=== PATIENT | male | born 1950 | race Caucasian/White ===

== ENCOUNTER 2016-11-19 07:53 | Observation (INO) ==
[2016-11-19] MEDS ORDERED: NITROGLYCERIN ONE (08:19)
[2016-11-19] MEDS ORDERED: ASPIRIN PO STA (08:20)
[2016-11-19] MEDS ORDERED: NITROGLYCERIN SL PRN (08:20)
[2016-11-19 08:37] LABS: MANUAL DIFF NEEDED? NO
--- NOTE | 2016-11-19 08:44 | Diag Imaging Result Doc PS360 ---
CHEST-PORTABLE - 11/19/2016 INDICATION: sob/cp TECHNIQUE: COMPARISON: None FINDINGS: There are sternotomy wires. The lungs are normally expanded and clear. Heart size and mediastinal contours are normal. No pneumothorax or pleural effusion. IMPRESSION: Negative exam. Electronically signed by Joe Buckner 11/19/2016 8:42 AM
[2016-11-19 08:45] LABS: BASO% 0.9 % (0.0-0.8); EOS# 0.38 X1000 (0.0-0.7); HEMATOCRIT 45.9 % (42.0-52.0); HEMOGLOBIN 15.2 g/dL (14.0-18.0); LYMPH# 1.56 X1000 (1.2-3.4); LYMPH% 24.6 % (20.5-51.1); MCH 29.8 PG (27-31); MCHC 33.1 g/dL (33-37); MPV 10.7 FL (7.4-10.4); NEUT% 57.5 % (42.2-75.2); PLT 139 X1000 (130-400)
[2016-11-19 08:56] LABS: INR 1.01; PROTIME 10.6 Seconds (9.2-11.7); PTT 23.9 Seconds (22.0-36.0)
[2016-11-19 09:10] LABS: AGAP 15; ALBUMIN 4.5 g/dL (3.5-5.0); ALKALINE PHOSPHATASE 87 U/L (32-122); BUN 17 mg/dL (8-22); CALCIUM 9.1 mg/dL (8.8-10.2); CHLORIDE 99 mmol/L (98-107); CK PROFILE 113 U/L (24-204); COSMO 288; GOT 18 U/L (10-34); GPT 24 U/L (10-44); MAGNESIUM 1.6 mg/dL (1.5-2.7); POTASSIUM 4.1 mmol/L (3.5-5.1); SODIUM 139 mmol/L (136-145); TCO2 25 mmol/L (25-35); TOTAL BILIRUBIN 0.45 mg/dL (0.20-1.00); TOTAL PROTEIN 6.4 g/dL (6.3-8.3)
--- NOTE | 2016-11-19 10:49 | EKG Report ---
Test Performed on : 11/19/2016 07:55:24 AM Test Reason : Chest Pain Blood Pressure : / mmHG Vent. Rate : 078 BPM Atrial Rate : 078 BPM P-R Int : 136 ms QRS Dur : 154 ms QT Int : 430 ms P-R-T Axes : 044 -52 -11 degrees QTc Int : 490 ms Normal sinus rhythm. Left axis deviation Right bundle branch block Inferior infarct (cited on or before 15-OCT-2014) Abnormal ECG When compared with ECG of 15-OCT-2014 12:28, T wave inversion no longer evident in Anterolateral leads Unconfirmed Result
[2016-11-19] MEDS ORDERED: ZOFRAN IV PRN (14:36)
[2016-11-19] MEDS ORDERED: PERCOCET-5 PO PRN (14:36)
[2016-11-19] MEDS ORDERED: METHOCARBAMOL 750 MG PO PRN (14:36)
[2016-11-19] MEDS ORDERED: TYLENOL PO PRN (14:36)
[2016-11-19] MEDS: HUMALOG SUBQ SCH ×2 (16:54→21:00)
--- NOTE | 2016-11-19 17:13 | HISTORY AND PHYSICAL ---
PCP: Dr. Hernandez. SOLAR POWER INSTALLER: Dr. Sawyer Rojas. CHIEF COMPLAINT: Chest pain. HISTORY OF PRESENT ILLNESS: Mr. Eaton is a 65-year-old male with a history of known coronary disease status post MT and stenting and CABG who presents to our ER with chest pain that began this morning at rest. He described midsternal heaviness radiating to the left arm lasting several hours until he came to the ER for evaluation at which time he got nitroglycerin which did relieve the pain. He denies any shortness of breath, nausea or vomiting. He does report some mild diaphoresis. He denies any syncope, palpitations, fever, chills or cough. He does report chronic lower extremity edema but no PND or orthopnea. When he got to the ER labs and diagnostics were done, he had an EKG done which showed sinus rhythm with a right bundle branch block and nonspecific ST changes. Lab data is unremarkable except for some mild hyperglycemia. Cardiology is already been consulted. He is going to be admitted for observation status for chest pain. PAST MEDICAL HISTORY: 1. CAD status post MT and stenting. 2. Hypertension. 3. Hyperlipidemia. 4. Type 2 diabetes. 5. PVD. 6. AAA. 7. Kidney stones. SURGICAL HISTORY: He has had CABG, left heart catheterization and lithotripsy. SOCIAL HISTORY: He is . He denies tobacco, alcohol or drug use. FAMILY HISTORY: Noncontributory. REVIEW OF SYSTEMS: Fourteen-point review of systems obtained found to be negative with the exception of the HPI. ALLERGIES: No known drug allergies. HOME MEDICATIONS: Aspirin 81 mg daily, Zetia 10 mg daily, glimepiride 4 mg daily, hydrochlorothiazide 25 mg daily, Lantus and Humalog as directed, irbesartan 150 mg daily, metformin 1000 mg p.o. b.i.d., methocarbamol 750 mg p.o. as needed, methyldopa 500 mg daily, metoprolol tartrate 100 mg daily, Percocet 5 as needed, Protonix 40 mg daily, Zantac 10 mg daily, Viagra 100 mg as needed, Januvia 100 mg daily, Flomax 0.4 mg daily. PHYSICAL EXAMINATION: VITAL SIGNS: Blood pressure 142/72, heart rate 68, respiratory rate is 18, O2 saturation 96% on room air. GENERAL: This is an obese male lying in hospital bed, no acute distress. NEUROLOGIC: He is awake, alert, oriented. He follows commands without focal deficits. HEENT: Head is atraumatic, normocephalic. His pupils are equal, round, reactive to light. Oral mucosa is moist. Trachea is midline. There is no JVD. CHEST: Clear to auscultation bilaterally. CV: Regular rate and rhythm. S1-S2 is noted. No murmurs. GI: Soft, nondistended, nontender. Bowel sounds positive. EXTREMITIES: Trace edema bilaterally, pulses 1, no clubbing or cyanosis. DIAGNOSTIC DATA: EKG sinus rhythm, right bundle branch block. Chest x-ray negative. WBC 6.35, hemoglobin 15.2, hematocrit 45.9, platelet count 139,000, INR 1.01, sodium 139, potassium 4.1, chloride 99, CO2 25, anion gap 15, BUN 17, creatinine 1, glucose 258, magnesium 1.6. LFTs within normal limits. Troponin negative. ProBNP 221, albumin 4.5. ASSESSMENT/PLAN: 1. Chest pain: Does have some typical features. He is going to have a stress test today, will continue his aspirin, beta lc, nitrates. Will trend his enzymes and keep him on telemetry. 2. Type 2 diabetes: Hold his oral antidiabetics and add pattern sugars sliding scale insulin, check hemoglobin A1c in the morning. 3. Hypertension: Chronic and stable, continue home medications. 4. Hyperlipidemia: We will check a lipid panel in the morning, continue his home medications. 5. Deep vein thrombosis prophylaxis will be provided with Lovenox. Further recommendations to follow. Dictated by ELIZABETH Dior for Mauri Orozco MD Addendum: Patient seen and examined by myself. Agree with ELIZABETH note. It reflects my assessment and plan. Patient with known history of cardiac disease presented to ER complaining of chest pain in substernal area, with some diaphoresis and nausea. Will be admitted to hospital. Cardiac enzymes will be trended, an echo is already ordered and cardiology will be consulted as well. Will follow their recommendations. cc: ELIZABETH Dior MD [facility]
--- NOTE | 2016-11-19 17:53 | CONSULTATION ---
DATE OF CONSULTATION: 11/19/2016 IMPRESSION: 1. Left arm discomfort and atypical chest discomfort. 2. Atherosclerotic coronary disease with chronically occluded mid right coronary artery and severe left circumflex stenosis treated with angioplasty/stenting and later coronary bypass grafting to obtuse marginal for severe stenosis just proximal to the stent. Left ventricular ejection fraction has been around 45% with mild inferior/inferolateral hypokinesis. Coronary bypass performed 2012. 3. Hypertension. 4. Hyperlipidemia. 5. Type 2 diabetes mellitus. 6. Previous cigarette use, discontinued 2009. RECOMMENDATIONS: 1. Follow up serial cardiac enzymes. 2. Pursue stress myocardial perfusion imaging if cardiac enzymes negative. HISTORY: This 65-year-old, white male with past history of atherosclerotic coronary disease as outlined above presented to the emergency room this morning with left arm discomfort and some chest discomfort. He was admitted for further evaluation. Cardiology consultation requested. He relates that he awoke this morning with a dull discomfort in his left arm. He also describes some fleeting episodes of sharp left anterior chest discomfort. He has had atypical chest symptoms along the course of his coronary disease and is not clear what his angina symptoms have been. Symptoms have improved after treatment in the emergency room. He is generally fairly active and denies any exertional chest discomfort or dyspnea. PAST MEDICAL HISTORY: 1. Atherosclerotic coronary disease as outlined above. 2. Hypertension. 3. Hyperlipidemia. 4. Type 2 diabetes mellitus. 5. Peripheral vascular disease. 6. Nephrolithiasis. 7. Mild abdominal aortic aneurysm. ALLERGIES: He is allergic or intolerant of statins. MEDICATIONS: Prior to admission as listed. SOCIAL HISTORY: He quit smoking in 2009. 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 FAMILY HISTORY: Positive for coronary disease. REVIEW OF SYSTEMS: Pulmonary: Negative. Gastrointestinal: Negative. Constitutional: Negative. Remainder of review of systems negative/noncontributory, 14 total systems reviewed. PHYSICAL EXAMINATION: General: This is a pleasant overweight middle-aged male in no distress. Vital Signs: As recorded include a blood pressure 151/79, heart rate 65 and regular, weight 255 pounds. HEENT: Extraocular movements intact. Mucous membranes moist. Neck: Supple without jugular venous distention. There are no carotid bruits. Chest: Clear to auscultation. Cardiac Exam: Reveals a regular rate and rhythm without appreciable murmur or gallop. Abdomen: Soft, nontender. Bowel sounds are normal. Extremities: Without edema. Neurologic Exam: Reveals him to be alert and fluent. Speech is fluent. Moves all 4 extremities equally well. Skin: Warm and dry. Psychiatric: Exam reveals mood to be appropriate. DIAGNOSTIC DATA: ECG demonstrates sinus rhythm, left anterior fascicular block, right bundle branch block and cannot rule out inferior infarct of undetermined age. cc: Tevin Schwartz MD
[2016-11-20] MEDS: HUMALOG SUBQ SCH ×2 (06:07→11:59)
[2016-11-20 06:28] LABS: HEMOGLOBIN 14.9 g/dL (14.0-18.0); MCH 30.5 PG (27-31); MCHC 33.1 g/dL (33-37); MPV 10.6 FL (7.4-10.4); RBC 4.89 XMIL (4.7-6.1)
[2016-11-20 06:36] LABS: HEMOGLOBIN A1C 7.2 % (4.8-6.0)
--- NOTE | 2016-11-20 06:37 | EKG Report ---
Test Performed on : 11/20/2016 05:54:54 AM Test Reason : chest pain Blood Pressure : / mmHG Vent. Rate : 071 BPM Atrial Rate : 071 BPM P-R Int : 134 ms QRS Dur : 148 ms QT Int : 466 ms P-R-T Axes : 028 -42 -29 degrees QTc Int : 506 ms Sinus rhythm. with premature supraventricular complexes. and with occasional premature ventricular c omplexes. Left axis deviation Right bundle branch block Inferior infarct (cited on or before 15-OCT-2014) Abnormal ECG When compared with ECG of 19-NOV-2016 07:55, (Unconfirmed) premature ventricular complexes. are now present premature supraventricular complexes. are now present Questionable change in initial forces of Inferior leads Nonspecific T wave abnormality now evident in Anterolateral leads Confirmed by Kourtney MARTINEZ, Zhang Lock ([id number]) on 11/21/2016 9:58:05 AM
[2016-11-20 06:39] LABS: AGAP 12; BUN 17 mg/dL (8-22); CALCIUM 9.1 mg/dL (8.8-10.2); CHLORIDE 100 mmol/L (98-107); COSMO 290; HDL 27 mg/dL (35-55); LDL 58 mg/dL; POTASSIUM 3.9 mmol/L (3.5-5.1); SODIUM 143 mmol/L (136-145); TCO2 31 mmol/L (25-35); TRIGLYCERIDES 400 mg/dL (39-160); VLDL 80 mg/dL
[2016-11-20] MEDS ORDERED: PROTONIX PO SCH (07:00)
[2016-11-20] MEDS ORDERED: LEXISCAN ONE (08:07)
[2016-11-20] MEDS ORDERED: ALDOMET PO SCH (09:00)
[2016-11-20] MEDS ORDERED: LOPRESSOR PO SCH (09:00)
[2016-11-20] MEDS ORDERED: AVAPRO PO SCH (09:00)
[2016-11-20] MEDS ORDERED: INSULIN LISPRO 100 UNIT SQ SCH (09:00)
[2016-11-20] MEDS ORDERED: PEPCID PO SCH (09:00)
[2016-11-20] MEDS ORDERED: HYDROCHLOROTHIAZIDE PO SCH (09:00)
[2016-11-20] MEDS ORDERED: ZETIA PO SCH (09:00)
[2016-11-20] MEDS ORDERED: ASPIRIN PO SCH (09:00)
[2016-11-20] MEDS ORDERED: APRESOLINE IV PRN (09:48)
--- NOTE | 2016-11-20 11:09 | PROGRESS NOTE ---
DATE: 11/20/2016 SUBJECTIVE: This patient states that he is feeling better. He has no complaint of chest pain today. He is tolerating p.o. He just had a stress test done, pending results. OBJECTIVE: Vital Signs: Temperature 98.3 degrees, pulse 71, respiratory rate 17, blood pressure 187/98, oxygen saturation 97% on room air. HEENT: Head normocephalic. No trauma. PERRLA. Neck: Supple. No JVD. No masses. Central trachea. Chest: Clear to auscultation. No wheezing. No rales. Abdomen: Soft, protuberant, nontender, and nondistended. No hepatosplenomegaly. Extremities: There is 1+ lower extremity edema. No clubbing. No cyanosis. Neurological Examination: The patient is alert and oriented x3. No focal neurological deficits. Laboratory: WBC 5.3, hemoglobin 14.9, hematocrit 45, platelets 127,000. Sodium 143, potassium 3.9, chloride 100, bicarbonate 31, BUN 17, creatinine 0.9, glucose 160, hemoglobin A1c 7.2, calcium 9.1. ASSESSMENT AND PLAN: 1. Chest pain. This patient recently had a stress test done. He is not feeling any kind of chest pain today and apparently no acute events overnight. Pending results. Cardiology department already on board. Continue with the same management. 2. Type 2 diabetes. Hemoglobin A1c is 7.2 so apparently this patient has been taking care of his blood sugar at home. For now, we will continue with the sliding scale insulin and pattern of blood sugar. 3. Hypertension. The blood pressure has been elevated and I do believe it is because he has not been taking his medications today. He was nothing per oral for the procedure. We will restart his medications. We will monitor the blood pressure during the day. 4. Hyperlipidemia. His triglycerides are elevated and he knows about this. Apparently, he used to be on different types of statins but they were stopped because of hepatotoxicity and myotoxicity. 5. Deep vein thrombosis prophylaxis. Continue with Lovenox. cc: Jesse Walden MD
[2016-11-20 11:23] VITALS: BP 167/90
--- NOTE | 2016-11-20 13:35 | Diag Imaging Result Document ---
PROCEDURE NAME: MYOCARDIAL PERF SCAN, STR/REST - 11/19/2016 INDICATION: Chest pain. PROCEDURES PERFORMED: 1. Lexiscan stress. 2. Two-day stress rest myocardial perfusion imaging. PROCEDURE IN DETAIL: Mr. Eaton was brought to the [facility] and had a resting study on 11/19/2016 with injection of 40.9 mCi of technetium-99m sestamibi with usual imaging protocol utilized. Subsequently, he was brought back on 11/20/2016 and had a Lexiscan stress. At peak stress, he was injected with 40.6 mCi of technetium-99m sestamibi with the usual imaging protocol utilized. FINDINGS: LEXISCAN STRESS RESULTS. 1. Baseline EKG shows sinus rhythm with a right bundle branch block. 2. Lexiscan stress did not demonstrate any clear evidence of ischemic-related EKG changes or significant arrhythmias. Occasional scattered PVCs were noted throughout the study. PERFUSION IMAGING RESULTS 1. No evidence of abnormal extracardiac uptake. 2. T.i.d. ratio 0.86. 3. Perfusion imaging demonstrates a moderate size, [id number] intensity fixed defect located in the inferior mid and inferior basilar segments predominantly. There is some very minimal extension into the inferior apical. This defect is fixed suggestive of infarct. There is no appreciable amount of ischemia identified on this study. 4. There is a preserved ejection fraction at stress of 58% with an end-diastolic volume of 165 and end systolic volume of 69. There does appear to be akinesis of the inferior basilar portions. cc: MD Tania Bender PA
--- NOTE | 2016-11-20 14:05 | PROGRESS NOTE ---
DATE: 11/20/2016 CARDIOLOGY FOLLOWUP NOTE: SUBJECTIVE: Patient continues without further chest discomfort or arm discomfort. OBJECTIVE: Vital Signs: Blood pressure 167/90 heart rate, 71 and regular. Chest: Clear to auscultation. Cardiac Exam: Reveals a regular rate and rhythm without appreciable murmur or gallop. There is no evidence of peripheral edema. LABORATORY DATA: Includes: Initial troponin less than 0.01. Followup troponin less than 0.01. Lexiscan sestamibi study demonstrates fixed defect in the basal inferolateral region left ventricle with associated mild hypokinesis suggesting prior infarct in this territory. There is no significant reversibility and no scintigraphic evidence of inducible myocardial ischemia. IMPRESSION: 1. Recent left arm discomfort and atypical chest discomfort. No evidence of myocardial infarction. 2. Atherosclerotic coronary disease with a chronically occluded mid right coronary artery and severe left circumflex coronary stenosis treated with angioplasty/stenting and later coronary bypass grafting to obtuse marginal for severe stenosis just proximal to the stent. Stress myocardial perfusion study this admission demonstrates fixed defect in the basal to mid inferolateral region suggesting prior infarct but no evidence of inducible myocardial ischemia. 3. Hypertension. 4. Hyperlipidemia. 5. Type 2 diabetes mellitus. RECOMMENDATIONS: 1. Continue medical management of patient's coronary atherosclerosis. 2. Reasonable for patient to be discharged home at this point as he appears clinically stable from a standpoint of his coronary disease. cc: Tevin Schwartz MD
[2016-11-20] MEDS ORDERED: LIPITOR PO SCH (21:00)
--- NOTE | 2016-11-21 05:50 | DISCHARGE SUMMARY ---
ADMISSION DATE: 11/19/2016 DISCHARGE DATE: 11/20/2016 CONSULTATIONS: Dr. Tevin Schwartz with Cardiology. PERTINENT PROCEDURES: 1. Chest x-ray with negative exam. 2. Myocardial perfusion scan demonstrated a fixed defect in the basal to mid inferior lateral region suggesting prior infarct but no evidence of inducible myocardial ischemia. DISCHARGE DIAGNOSES: 1. Chest pain with atypical features and left arm discomfort. The patient underwent a myocardial perfusion scan that showed no evidence of inducible myocardial infarction. Troponin's have all been negative. He has been chest pain and arm pain free since admission. 2. Atherosclerotic coronary artery disease with chronically occluded mid right coronary artery and severe left circ coronary stenosis treated with angioplasty stenting and later CABG to obtuse marginal for severe stenosis just proximal to the stent. We will continue with medical management. 3. Type 2 diabetes uncontrolled. Hemoglobin A1c of 7.2. Continue home regimen and diabetic diet. 4. Hypertension, uncontrolled. The patient has been educated on medical compliance. 5. Hyperlipidemia. His triglycerides are elevated. Patient is aware. Patient used to be on different types of statins, but they were stopped due to hepatotoxicity and mild toxicity. HOSPITAL COURSE: Mr. Eaton is a 65-year-old, male with a known history of coronary artery disease status post AL with stenting and CABG, who presented to the ED with chest pain that began on the morning of his admission at rest. He described it as mid sternal heaviness radiating to the left arm lasting several hours until he came to the ED for evaluation at which time he got nitroglycerin which did relieve his pain. He denies any shortness of breath. No nausea or vomiting. He did report some mild diaphoresis. He does report chronic lower extremity edema. No PND or orthopnea. When he got to the ER, his labs and diagnostics were done. An EKG showed sinus rhythm with a right bundle branch block with nonspecific ST changes. Lab data was unremarkable except for mild hyperglycemia. Cardiology was consulted. He was admitted and underwent a stress test that did not show any evidence of inducible myocardial ischemia. All troponin's have been negative. He has continued to be chest and arm discomfort free since admission. Cardiology's recommendations were to continue his current medical regimen for his coronary arthrosclerosis. It is reasonable for him to be discharged home since he is clinically stable and pain free. VITAL SIGNS AT TIME OF DISCHARGE: Temperature is 98.3 degrees, heart rate 71, respirations 17, blood pressure 167/90 and O2 is 97% on room air. DISCHARGE DIET: Healthy heart. DISCHARGE MEDICATIONS: 1. Aspirin 81 mg p.o. daily. 2. Zetia 10 mg p.o. daily. 3. Glimepiride 4 mg p.o. daily. 4. Hydrochlorothiazide 25 mg p.o. daily. 5. Lantus as directed. 6. Humalog 100 units mL cartridge, sliding scale as directed. 7. Irbesartan 150 mg p.o. daily. 8. Metformin ER 1000 mg p.o. b.i.d. 9. Methocarbamol 750 mg p.o. p.r.n. 10. Methyldopa 500 mg p.o. daily. 11. Metoprolol tartrate 100 mg p.o. daily. 12. Percocet 5 1 each p.o. q.4 hours p.r.n. 13. Protonix 40 mg p.o. daily. 14. Zantac 25 10 mg p.o. daily. 15. Viagra 100 mg p.o. p.r.n. 16. Januvia 100 mg p.o. daily. 17. Flomax 0.4 mg p.o. daily. FOLLOWUP: Mr. Eaton is being discharged home. He will follow up with Dr. Schwartz in the office within a month as well as his primary care physician Dr. Dolores Hernandez in 1 week. He can return to the ED for any worsening of symptoms. Time discharging this patient 40 minutes Dictated by ELIZABETH Aparicio for Jesse Walden MD cc: MD Dr. Dolores Gabriel [facility]
--- NOTE | 2016-11-21 06:10 | DISCHARGE SUMMARY ---
ADMISSION DATE: 11/19/2016 DISCHARGE DATE: 11/20/2016 ADDENDUM: Patient seen and examined by me [id number], this patient was admitted primarily because of chest pain and given his past medical history of coronary artery disease, hypertension, dyslipidemia and diabetes, we decided to keep this patient and consult Cardiology. We did a stress test that did not show any acute abnormality. Today, my physical exam was completely benign. He was not complaining of any chest pain, shortness of breath or any issue. His blood pressure was elevated because he was not taking any medication today. He was NPO for the procedure. Cardiology Department evaluated this patient and they felt this patient can be discharged home because he was clinically stable and not having any acute coronary syndrome. He will continue with the same management that he was at home, no changes. I was about to add the statin but apparently this patient had a history of hepatotoxicity and mild toxicity secondary to these medications. He will follow with the primary care doctor in 1 week and his aids social worker as scheduled. cc: Jesse Walden MD
--- NOTE | 2016-11-26 13:34 | PROVIDER DOCUMENTATION ---
This chart was entered by Dennise Delarosa Scribe, acting as scribe for Marsha Wen MD. HPI-Chest Pain - General Chief Complaint: Chest Pain Stated Complaint: cp/lft arm pain Time Seen by Provider: 11/19/16 08:13 Source: patient Allergies/Adverse Reactions: Patient Allergies Allergy/AdvReac Type Severity Reaction Status Date / Time No Known Allergies Allergy Verified 11/26/11 10:15 Home Medications: Home Medication List Medication Instructions Recorded Confirmed Last Taken Type Glimepiride 4 mg PO DAILY 11/27/11 11/19/16 10/17/14 08:00 History Metformin HCl [Metformin HCl ER] 1,000 mg PO BID 11/27/11 11/19/16 10/17/14 21: 30 History Sitagliptin [Januvia] 100 mg PO DAILY 11/27/11 11/19/16 10/17/14 08:00 History Aspirin 81 mg PO DAILY 10/15/14 11/19/16 10/15/14 05:30 History Ezetimibe [Zetia] 10 mg PO DAILY 10/15/14 11/19/16 10/14/14 06:30 History Hydrochlorothiazide 25 mg PO DAILY 10/15/14 11/19/16 10/11/14 08:00 History Insulin Glargine [Lantus] 0 unit SUBQ DIRECTED 10/15/14 11/19/16 10/17/14 08: 00 History Irbesartan 150 mg PO DAILY 10/15/14 11/19/16 10/18/14 07:30 History Methocarbamol 750 mg PO PRN PRN 10/15/14 11/19/16 07/16/14 21:00 History Methyldopa 500 mg PO DAILY 10/15/14 11/19/16 10/18/14 07:00 History Metoprolol Tartrate 100 mg PO DAILY 10/15/14 11/19/16 10/18/14 07:00 History Pantoprazole [Protonix] 40 mg PO DAILY@0700 10/15/14 11/19/16 10/17/14 08:00 History Sildenafil Citrate [Viagra] 100 mg PO PRN PRN 10/15/14 11/19/16 Unknown History Oxycodone/APAP 5 mg/325 mg 1 each PO Q4H PRN #15 tablet 08/31/15 10/02/17 Unknown Rx [Percocet-5] Tamsulosin [Flomax] 0.4 mg PO DAILY #0 capsule 10/18/14 11/19/16 Unknown Rx Insulin Lispro [Humalog] 100 unit SQ DAILY 11/19/16 11/19/16 Unknown History Ranitidine HCl [Zantac 25] 10 mg PO DAILY 11/19/16 11/19/16 Unknown History - History of Present Illness-CP Nature of Presenting Problem: Pt is a 65 y/o M presents to the ED with left arm pain. Pt states left arm pain radiates to left side chest. Pt states pain started this am. Pt denies shortness of breath. Pt states hx of GA and bypass. Pt denies headache. Location: reports: other (left arm) Chest Pain Radiation: reports: other (left side chest) Quality of Pain: reports: aching Severity in ED: mild Onset/Duration: this morning Timing: still present, getting worse Context/Activities at Onset: reports: light activity Modifying Factors: improves with: nothing Associated Symptoms: reports: denies symptoms Nitro Today/Relief: 0.4 mg x 1, provided by ED, complete relief Aspirin Treatment Today: 325 mg x 1, provided at home Prior Chest Pain/Cardiac Workup: reports: heart attack (2013), other (bypass 2014) Similar Symptoms Previously?: No Recently Seen Here or By Another Healthcare Provider: No Review of Systems - Adult - REVIEW OF SYSTEMS - ADULT Constitutional: reports: no symptoms reported Eyes: reports: no symptoms reported Ears, Nose, Mouth & Throat: reports: no symptoms reported Cardiovascular: reports: chest pain (left side chest). denies: heart murmur, irregular heart rate Respiratory: reports: no symptoms reported Gastrointestinal: reports: no symptoms reported Genitourinary: reports: no symptoms reported Musculoskeletal: reports: other (left arm pain). denies: bone pain, neck pain Integumentary: reports: no symptoms reported Neurological: reports: no symptoms reported Psychiatric: reports: no symptoms reported Endocrine: reports: no symptoms reported Hematologic/Lymphatic: reports: no symptoms reported Allergic/Immunologic: reports: no symptoms reported All Other Systems: Reviewed and Negative Past History - Adult - PAST MEDICAL HISTORY-ADULT Review of Records: reports: Nursing Assessment Review, Medications Reviewed, Social history reviewed & non-contributory. Major Childhood Illnesses: reports: denies history Cardiovascular: reports: HTN, GA (3) Respiratory: reports: denies history Gastrointestinal: reports: denies history Obstetrical/Gynecological: reports: denies history Genitourinary: reports: kidney stones Musculoskeletal: reports: denies history Neurological: reports: denies history Psychiatric: reports: denies history Endocrine/Immune: reports: Diabetes Other Conditions: reports: denies history - PRIOR SURGERIES/PROCEDURES Surgical/Procedure History: reports: CABG, cardiac stent - IMMUNIZATION STATUS Childhood Immunizations: See Nurse Assessment Flu Vaccine: See Nurse Assessment - FAMILY HISTORY Family History: reviewed, not pertinent - SOCIAL HISTORY Smoking: quit less than 1 year, cigarettes Substance Use: alcohol Alcohol Use Frequency: rarely Number of drinks per typical drinking period:: 2 drinks Living Situation: family Physical Exam-General - PHYSICAL EXAM-ADULT Initial Vital Signs Reviewed: Yes - CONSTITUTIONAL General Appearance: appears well, alert, no apparent distress. negative: lethargic, slow to respond - EYES Eyes: PERRL/EOMI, pink conjunctivae. negative: pale conjunctivae, sunken eyes - HEAD, EARS, NOSE, MOUTH & THROAT HENMT: normal ENT inspection. negative: angioedema, hearing deficit - NECK Neck: normal inspection. negative: lymphadenopathy, tender lateral - RESPIRATORY Respiratory: chest non-tender, lungs clear, normal breath sounds. negative: crackles, rhonchi - CARDIOVASCULAR Cardiovascular: normal peripheral pulses, regular rate, rhythm. negative: tachycardia, systolic murmur - GASTROINTESTINAL (ABDOMEN) Abdominal Exam: normal bowel sounds, non tender, soft. negative: guarding, rebound - LYMPHATIC Lymphatic: no adenopathy. negative: enlargement, streaking - MUSCULOSKELETAL Back Exam: normal inspection. negative: ecchymosis, swelling Extremity: normal inspection. negative: deformity, swelling - SKIN Integumentary: normal color, normal turgor, warm/dry. negative: diaphoresis, ecchymosis, erythema, laceration(s), rash - NEUROLOGIC Neurologic: grossly normal. negative: aphasia, facial droop - PSYCHIATRIC Psych/Mental Status: normal mood/affect, oriented x 3. negative: paranoid, tearful Progress - PLAN OF CARE/RESULTS Progress/Plan/Lab Results: Vital Signs - 8 hr 11/19/16 07:55 11/19/16 09:09 11/19/16 10:04 Temperature 98.7 F Pulse Rate 84 71 74 Respiratory Rate 18 16 16 Blood Pressure 143/84 141/78 145/78 O2 Sat by Pulse Oximetry 98 94 L 96 11/19/16 10:26 11/19/16 11:11 11/19/16 11:14 Temperature Pulse Rate 70 67 Respiratory Rate 15 18 Blood Pressure 145/78 151/79 O2 Sat by Pulse Oximetry 96 95 97 11/19/16 11:16 Temperature Pulse Rate 65 Respiratory Rate 19 Blood Pressure 151/79 O2 Sat by Pulse Oximetry 96 Laboratory Results - last 24 hr 11/19/16 11/19/16 11/19/16 08:27 08:27 08:27 WBC 6.35 RBC 5.10 Hgb 15.2 Hct 45.9 MCV 90.0 MCH 29.8 MCHC 33.1 RDW Std Deviation 13.9 Plt Count 139 MPV 10.7 H Immature Gran % (Auto) 0.0 Neut % (Auto) 57.5 Lymph % (Auto) 24.6 Cass % (Auto) 11.0 H Eos % (Auto) 6.0 Baso % (Auto) 0.9 H Immature Gran # (Auto) 0.00 Neut # (Auto) 3.65 Lymph # (Auto) 1.56 Cass # (Auto) 0.70 H Eos # (Auto) 0.38 Baso # (Auto) 0.06 PT INR PTT (Actin FS) Sodium 139 Potassium 4.1 Chloride 99 Carbon Dioxide 25 Anion Gap 15 BUN 17 Creatinine 1.0 Estimated GFR/1.73 m2 > 60 BUN/Creatinine Ratio 17 Glucose 258 H Calculated Osmolality 288 Calcium 9.1 Magnesium 1.6 Total Bilirubin 0.45 AST 18 ALT 24 Alkaline Phosphatase 87 Creatine Kinase 113 Troponin T Pjw-V-Wsvlwibddmf Pept 221 H Total Protein 6.4 Albumin 4.5 Globulin 1.9 Albumin/Globulin Ratio 2.4 11/19/16 11/19/16 08:27 08:27 WBC RBC Hgb Hct MCV MCH MCHC RDW Std Deviation Plt Count MPV Immature Gran % (Auto) Neut % (Auto) Lymph % (Auto) Cass % (Auto) Eos % (Auto) Baso % (Auto) Immature Gran # (Auto) Neut # (Auto) Lymph # (Auto) Cass # (Auto) Eos # (Auto) Baso # (Auto) PT 10.6 INR 1.01 PTT (Actin FS) 23.9 Sodium Potassium Chloride Carbon Dioxide Anion Gap BUN Creatinine Estimated GFR/1.73 m2 BUN/Creatinine Ratio Glucose Calculated Osmolality Calcium Magnesium Total Bilirubin AST ALT Alkaline Phosphatase Creatine Kinase Troponin T < 0.010 Agb-M-[id number] Pept Total Protein Albumin Globulin Albumin/Globulin Ratio Orders Category Date Time Status Cardiac Monitoring DIRECTED Care 11/19/16 08:20 Active Nursing- MD Consult Request ROUTINE Care 11/19/16 10:20 Active Oxygen Therapy- ED Nursing DIRECTED Care 11/19/16 08:20 Active Saline Loc NOW Care 11/19/16 08:20 Active Z-Document. for Tele Applied ORDERED Care 11/19/16 12:36 Active MD [Physician/Provider Consults] Routine Cons 11/19/16 10:20 Ordered CHEST-PORTABLE [RAD] Stat Exams 11/19/16 08:21 Completed Lona [MYOCARDIAL PERF SCAN, STR/REST] [NM] Stat Exams 11/19/16 12:17 Ordered A1C HGB W EST AVG GLUCOSE [CHEM] Routine Lab 11/20/16 06:00 Ordered CBC WITH ELECTRONIC DIFF [HEME] Stat Lab 11/19/16 08:27 Completed CK PROFILE [SP CHEM] Q8H Lab 11/19/16 12:26 Ordered CK PROFILE [SP CHEM] Q8H Lab 11/19/16 20:26 Ordered CK PROFILE [SP CHEM] Q8H Lab 11/20/16 04:26 Ordered CK PROFILE [SP CHEM] Stat Lab 11/19/16 08:27 Completed COMPREHENSIVE METABOLIC PANEL [CHEM] Stat Lab 11/19/16 08:27 Completed MAGNESIUM [CHEM] Stat Lab 11/19/16 08:27 Completed PRO B-NATRIURETIC PEPTIDE Stat Lab 11/19/16 08:27 Completed PROTIME WITH INR [COAG] Stat Lab 11/19/16 08:27 Completed PTT [COAG] Stat Lab 11/19/16 08:27 Completed TROPONIN T Q8H Lab 11/19/16 12:26 Ordered TROPONIN T Q8H Lab 11/19/16 20:26 Ordered TROPONIN T Q8H Lab 11/20/16 04:26 Ordered TROPONIN T Stat Lab 11/19/16 08:27 Completed Aspirin Med 11/19/16 08:20 Discontinued 325 mg PO STAT STA Nitroglycerin Sl [Nitroglycerin] Med 11/19/16 08:19 Discontinued 0.4 mg .ROUTE .STK-MED ONE Nitroglycerin Sl [Nitroglycerin] Med 11/19/16 08:20 Active 0.4 mg SL Q5M PRN PRN Telemetry [OM.EQ] Routine Oth 11/19/16 12:36 Active EKG [EKG] Routine Ther 11/20/16 06:00 Ordered EKG [EKG] Stat Ther 11/19/16 08:20 Draft Result Diagrams: 11/19/16 08:27 11/19/16 08:27 - EKG 1 Time of EKG reading by physician:: 07:55 EKG Read and Signed by:: Marsha Wen EKG Interpretation (*Must complete 3 of following elements*): Abnormal Rate: 78 Rhythm: normal sinus rhythm Comments: left axis deviation; RBBB; inferior infarct, age undetermined - XRAY 1 XRAY Study: Chest Impression: Normal XRAY Interpretation: Negative exam. - CONSULTS/PCP/HOSPITALIST Notification #1 *Consult/PCP/Hospitalist*: Dr. Jewell Time Discussed: 11:18 Reason/Comments: Dr. Wen consulted with Dr. Jewell about Pt Consult Disposition: other (Dr. Jewell will consult) #2 Consult: ELIZABETH Recinos for Hospitalist Time Discussed: 12:35 ( accepted Pt ) Reason/Comments: Dr. Wen consulted with RIGO Recinos about Pt Consult Disposition: Admit Departure - Departure Date of Disposition Decision: 11/19/16 Time of Disposition Decision: 12:35 DIAGNOSIS: Acute angina Disposition: ADMITTED INPATIENT 09 Certified Medical Emergency: Emergent Condition: Stable Referrals and Follow-Ups: Marj Hernandez [Primary Care Provider] - - Critical Care Note This patient required my direct & personal management of CC.: No Attestation - Physician/ NOEMY Attestation Patient care was provided by Advanced Practice Provider:: No The physician spent face to face time with patient:: Yes Advanced Practice Provider documentation review:: Supervising physician onsite and consulted in the evaluation and care of this patient. The physician did have a face to face encounter with the patient. This chart was documented by the indicated scribe, (Dennise Delarosa Scribe) and accurately reflects the services I performed and decisions made by me, Marsha Wen MD, as attested by the provider's signature.
== END 2016-11-20 15:48 | disposition home or self-care (01) ==
LOC: 3N 07:53 → ED 07:53 → SUATTDRO 07:54
PROVIDERS: ATTEND Internal Medicine

== ENCOUNTER 2019-04-28 12:19 | Observation (INO) ==
[2019-04-28] MEDS ORDERED: SODIUM CHLORIDE 0.9% INJ PRN (12:34)
[2019-04-28] MEDS ORDERED: PHENERGAN IV PRN (12:34)
[2019-04-28] MEDS ORDERED: TYLENOL PO PRN (12:34)
--- NOTE | 2019-04-28 12:53 | Diag Imaging Result Doc PS360 ---
EXAM: CHEST-PORTABLE HISTORY: dyspnea TECHNIQUE: Single view COMPARISON: 11/19/2016 FINDINGS: The lungs are well expanded. The heart is borderline mildly prominent. There are sternal wires The vessels are not distended. There are no infiltrates. No effusion identified. IMPRESSION: No pneumonia or congestive failure Electronically signed by Alexander De La Garza 04/28/2019 12:51 PM
[2019-04-28 13:04] LABS: HEMOGLOBIN 9.5 g/dL (14.0-18.0); MCH 21.4 PG (27-31); MCHC 28.8 g/dL (33-37); MCV 74.5 FL (81-99); MPV 10.2 FL (7.4-10.4); RBC 4.43 XMIL (4.7-6.1); RDW 16.4 % (11.5-14.5); WBC 7.21 X1000 (4.8-10.8)
[2019-04-28 13:12] LABS: INR 0.99; PROTIME 13.2 Seconds (11.0-16.0)
[2019-04-28 13:13] LABS: PTT 28.5 Seconds (22.3-41.8)
[2019-04-28 13:15] LABS: AGAP 15; ALB/GLOB RATIO 1.4; ALBUMIN 4.3 g/dL (3.5-5.0); ALKALINE PHOSPHATASE 77 U/L (32-122); BUN 15 mg/dL (8-22); CALCIUM 9.3 mg/dL (8.8-10.2); CHLORIDE 101 mmol/L (98-107); CK TOTAL 52 U/L (24-204); COSMO 291; CREATININE 1.1 mg/dL (0.7-1.2); ESTIMATED GFR > 60; GLUCOSE 260 mg/dL (70-104); GOT 20 U/L (10-34); GPT 19 U/L (10-44); POTASSIUM 4.3 mmol/L (3.5-5.1); SODIUM 141 mmol/L (136-145); TCO2 25 mmol/L (25-35); TOTAL BILIRUBIN 0.36 mg/dL (0.20-1.00); TOTAL PROTEIN 7.4 g/dL (6.3-8.3)
[2019-04-28 13:18] LABS: HEMOGLOBIN A1C 9.3 % (4.8-6.0)
--- NOTE | 2019-04-28 13:40 | EKG Report ---
Test Performed on : 04/28/2019 1:30:14 PM Test Reason : chest pain Blood Pressure : / mmHG Vent. Rate : 082 BPM Atrial Rate : 082 BPM P-R Int : 124 ms QRS Dur : 148 ms QT Int : 436 ms P-R-T Axes : 023 -37 -34 degrees QTc Int : 509 ms Sinus rhythm. with occasional premature ventricular complexes. Left axis deviation Right bundle branch block Inferior infarct (cited on or before 15-OCT-2014) T wave abnormality, consider anterolateral ischemia Abnormal ECG When compared with ECG of 20-NOV-2016 05:54, premature supraventricular complexes. are no longer present Questionable change in initial forces of Inferior leads T wave inversion now evident in Anterior leads Confirmed by Shawn Lawrence MD ([id number]) on 04/28/2019 9:13:50 PM
[2019-04-28] MEDS: LOVENOX SUBQ SCH (13:55)
[2019-04-28] MEDS: NITROGLYCERIN TOP SCH ×2 (13:55→21:02)
--- NOTE | 2019-04-28 14:13 | HISTORY AND PHYSICAL ---
CHIEF COMPLAINT: Chest pain. HISTORY OF PRESENT ILLNESS: Mr. Shalom Eaton is a 68-year-old gentleman whom I saw for the 1st time in clinic earlier today. He has a history of multiple medical problems including essential hypertension, BPH, type 2 insulin-dependent diabetes mellitus, mixed hyperlipidemia, ischemic heart disease, and gastroesophageal reflux disease. He presented to the office with a 3 month history of chest pain. He has pressure and tightness in the left anterior chest with radiation of pain to his neck and arm. He has dyspnea and sweating with these episodes. His episodes have occurred off and on for 3 months, but have intensified greatly within the past 2 weeks. He apparently had a Lexiscan within the past several weeks, which demonstrated no reversible ischemia. He has had a previous coronary artery bypass graft surgery in 2009 following an TN. His chest pain occurs both at rest and with activity. PAST MEDICAL HISTORY: BPH, essential hypertension, type 2 non insulin-dependent diabetes mellitus, mixed hyperlipidemia, ischemic heart disease, gastroesophageal reflux disease. PAST SURGICAL HISTORY: Cervical fusion at C4-5, C5-C6, left rotator cuff repair. ALLERGIES: Statins. FAMILY HISTORY: His mother had diabetes mellitus and congestive heart failure. His father had known ischemic heart disease status post coronary artery bypass graft surgery. SOCIAL HISTORY: He is a former smoker. He does consume alcoholic beverages. He is and lives with his spouse. MEDICATIONS: Flomax 0.4 mg daily, Irbesartan 150 mg 2 tablets daily, glimepiride 4 mg 2 pills daily, Lasix 40 mg daily, Zetia 10 mg daily, metformin 500 mg 2 tablets b.i.d., metoprolol 100 mg b.i.d., hydralazine 50 mg b.i.d., spironolactone 50 mg daily, Ranexa 500 mg b.i.d., pantoprazole 40 mg daily, aspirin 81 mg daily, Levemir 50 units subcutaneously daily. REVIEW OF SYSTEMS: General: She he denies any recent weight gain or weight loss. HEENT: Wears glasses, CV: See HPI. Pulmonary: See HPI. GI: No reflux, dysphagia, melena, hematochezia, change in bowel habits or rectal bleeding. Endocrine: No polyuria. No polydipsia. No cold or heat intolerance. Skin: No easy bruisability. : No leakage of urine with coughing or laughing. Skin: No easy bruisability. Neurologic: No migraines or seizures. Psychiatric: No history of depression. PHYSICAL EXAMINATION: GENERAL: This is a well-developed, well-nourished, 68-year-old gentleman in no apparent distress. VITAL SIGNS: Temperature 98.1 degrees, pulse 82, respirations 18, BP 150/86. HEENT: Fundi with arteriolar wall thickening. Pupils equal, round, reactive to light. Extraocular movements intact. TMs without bullae. NECK: Supple. No masses, JVD or bruits. CARDIOVASCULAR: Regular rate and rhythm. LUNGS: Clear. ABDOMEN: Soft, nontender with active bowel sounds. No hepatosplenomegaly. No abdominal bruits. EXTREMITIES: Without edema. SKIN: No palpable purpura. GENITOURINARY/RECTAL: Exams deferred. NEUROLOGIC: Nonfocal. ASSESSMENT AND PLAN: 1. Unstable angina. He has known ischemic heart disease, had coronary artery bypass graft surgery in 2009. I will admit him to [facility]. We will treat him with aspirin, topical nitrates, Lovenox 1 mg/kg subcutaneously b.i.d. and we will rule him out for myocardial ischemia by serial enzymes. I will consult Dr. Raulito Schwartz to see him in consultation. If he rules out for myocardial ischemia, I still believe that he will need an elective arteriogram. Given his clinical story, his history of underlying heart disease and the fact that he had a recent Lexiscan that demonstrated no reversible ischemia. Certainly if you had severe 3 vessel disease, you could see a false negative Lexiscan. 2. Mixed hyperlipidemia. He has not been able to take statins. He is currently on Zetia. I am going to check a lipid profile. I believe he would be a great candidate for Repatha. I would like to see his total cholesterol less than 200, LDL less than 70 and HDL greater than 50. 3. Gastroesophageal reflux disease. I reviewed anti-reflux precautions with him and will continue pantoprazole 40 mg daily. 4. Type 2 bbh-ljrmahz-nmurmaqzu diabetes mellitus. We will place him on an 1800 calorie ADA diet, pattern sugars, Humulin R sliding scale and his regular home dosage of medicines. I will check a hemoglobin A1c. Given his comorbid conditions and clinical presentation, I believe that it is reasonable to admit him to [facility] for further evaluation and management. He certainly is at increased risk for fatal TN. I anticipate that he will be in the hospital for at least 1 midnight and I will therefore place him in outpatient status with observation service. cc: Jennifer Duong MD
--- NOTE | 2019-04-28 16:42 | CONSULTATION ---
DATE OF CONSULTATION: 04/28/2019 IMPRESSION: 1. Recurrent chest discomfort with clinical features suggesting unstable angina. 2. Coronary artery disease with history of previous coronary bypass grafting in 2009. 3. Type 2 diabetes mellitus now requiring insulin for control. Hemoglobin A1c suggests inadequate control of diabetes mellitus. 4. Tendency for anemia. Patient recently had evaluation which demonstrated healed gastritis and diverticular disease with no active bleeding. His anemia improved with iron supplements. 5. Hypertension. 6. Hyperlipidemia. 7. Previous cigarette use, discontinued in 2009. RECOMMENDATIONS: 1. Given clinical presentation, favor pursuit of cardiac catheterization and selective coronary angiography with possible coronary angioplasty/stenting. The rationale for this approach was discussed with the patient including potential hazards. There is significant potential that he may end up requiring coronary angioplasty/stenting. This was discussed with the patient. He expressed preference to transfer to [facility] to have cardiac catheterization procedure performed there. This is certainly reasonable. 2. Given history of hyperlipidemia and statin intolerance, consider Repatha in the future. HISTORY: This 68-year-old, white male with past history of atherosclerotic coronary disease, previous coronary angioplasty/stent procedures in the past, coronary bypass surgery approximately 10 years ago, hypertension, hyperlipidemia, type 2 diabetes mellitus requiring insulin for control, and recent tendency for anemia with negative GI evaluation was admitted from Dr. Duong office for further management of suspected unstable angina. He describes a several month history of recurrent exertional chest discomfort which he describes somewhat vaguely. This is associated with shortness of breath. Symptoms are relieved with rest. The tendency for chest discomfort has been progressively getting worse such that he can get chest discomfort and shortness of breath just walking through the house. He had one episode provoked by a hot shower. He had noninvasive evaluation in [place], [place] 3 months ago which was reportedly negative and he has been found to have some tendency for anemia and recently had a GI evaluation with upper GI endoscopy and colonoscopy. No active bleeding was evident. He was treated with iron supplements. Hematocrit subsequently improved. His tendency for chest discomfort has been occurring more and more readily and he came in for initial visit with Dr. Duong today. History suggested unstable angina. He was referred for admission to the hospital. He is presently without chest discomfort. PAST MEDICAL HISTORY: 1. Atherosclerotic coronary disease with history of previous coronary bypass surgery. 2. Hypertension. 3. Hyperlipidemia. 4. Type 2 diabetes mellitus requiring insulin for control. 5. Peripheral vascular disease. 6. Nephrolithiasis. 7. Recent anemia with negative GI evaluation. 8. He is allergic or intolerant of statins because of muscle aches/cramping. MEDICATIONS PRIOR TO ADMISSION: As listed. 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 He quit smoking in 2009. He is . FAMILY HISTORY: Positive for coronary disease. REVIEW OF SYSTEMS: Pulmonary: Noteworthy for exertional dyspnea but negative for dyspnea at rest, cough or orthopnea. Gastrointestinal: Negative for melena. Constitutional: Noncontributory. The remainder of review of systems negative/noncontributory with 14 total systems reviewed. PHYSICAL EXAMINATION: General: This is an obese, older, white male in no distress on room air. Vital signs: Blood pressure 150/86, heart rate 82, oxygen saturation 99% on room air. HEENT: Extraocular movements intact. Mucous membranes moist. Neck: Supple without jugular venous distention. No carotid bruits. Chest: Clear to auscultation. Cardiac Exam: Reveals a regular rate and rhythm without appreciable murmur or gallop. Abdomen: Soft. Bowel sounds are normal. Extremities: Without edema. Neurologic: Reveals him to be alert and fully oriented. Speech is fluent. Moves all 4 extremities equally well. Skin: Warm dry. Psychiatric: Reveals mood to be appropriate 12 lead EKG is reviewed and demonstrates sinus rhythm with occasional premature ventricular complex left axis deviation, right bundle branch block and lateral T-wave abnormality, consider lateral ischemia. LABORATORY DATA: Includes a white blood cell count 7.21, hematocrit 33.0, hemoglobin 9.5, platelet count 236,000, pro-time 13.2, INR 0.99, PTT 28.5. Sodium 141, potassium 4.3, chloride 101, carbon dioxide 25, BUN 15, creatinine 1.1, glucose 260, hemoglobin A1c 9.3, CPK 52, troponin T high sensitivity 17. cc: MD Jennifer Rogel MD
[2019-04-28] MEDS: HUMALOG SUBQ SCH ×2 (17:04→21:02)
[2019-04-28] MEDS ORDERED: AVAPRO PO SCH (21:00)
[2019-04-28] MEDS ORDERED: AMARYL PO SCH (21:00)
[2019-04-28] MEDS ORDERED: GLUCOPHAGE XR PO SCH (21:00)
[2019-04-28] MEDS ORDERED: RANEXA PO SCH (21:00)
[2019-04-29] MEDS: NITROGLYCERIN TOP SCH (00:47)
[2019-04-29] MEDS: LOVENOX SUBQ SCH (00:48)
[2019-04-29 04:56] LABS: HEMATOCRIT 29.4 % (42.0-52.0); HEMOGLOBIN 8.5 g/dL (14.0-18.0); MCH 21.6 PG (27-31); MCHC 28.9 g/dL (33-37); MCV 74.8 FL (81-99); MPV 10.9 FL (7.4-10.4); RBC 3.93 XMIL (4.7-6.1); RDW 16.3 % (11.5-14.5); WBC 6.83 X1000 (4.8-10.8)
[2019-04-29] MEDS: HUMALOG SUBQ SCH (06:31)
[2019-04-29] MEDS ORDERED: PROTONIX PO SCH (07:00)
--- NOTE | 2019-04-29 07:16 | EKG Report ---
Test Performed on : 04/29/2019 06:28:27 AM Test Reason : chest pain Blood Pressure : / mmHG Vent. Rate : 093 BPM Atrial Rate : 093 BPM P-R Int : 132 ms QRS Dur : 150 ms QT Int : 408 ms P-R-T Axes : 043 -55 -07 degrees QTc Int : 507 ms Normal sinus rhythm. Left axis deviation Right bundle branch block Left ventricular hypertrophy with repolarization abnormality Inferior infarct (cited on or before 15-OCT-2014) Abnormal ECG When compared with ECG of 28-APR-2019 13:30, premature ventricular complexes. are no longer present T wave inversion no longer evident in Lateral leads Confirmed by Shawn Lawrence MD ([id number]) on 04/30/2019 9:12:30 PM
[2019-04-29] MEDS ORDERED: MISC. PHARMACY COMMUNICATION SCH (07:30)
[2019-04-29 07:35] VITALS: BP 130/75
[2019-04-29] MEDS ORDERED: LOPID PO SCH (08:00)
[2019-04-29] MEDS ORDERED: NON-FORMULARY BULK MED SUBQ SCH (08:00)
[2019-04-29] MEDS ORDERED: ZETIA PO SCH (09:00)
[2019-04-29] MEDS ORDERED: HYDROCHLOROTHIAZIDE PO SCH (09:00)
[2019-04-29] MEDS ORDERED: LANTUS INSULIN SUBQ SCH (09:00)
[2019-04-29] MEDS ORDERED: ASPIRIN PO SCH (09:00)
[2019-04-29] MEDS ORDERED: FLOMAX PO SCH (09:00)
[2019-04-29] MEDS ORDERED: AVAPRO PO SCH (09:00)
[2019-04-29] MEDS ORDERED: FERROUS SULFATE PO SCH (09:00)
--- NOTE | 2019-04-29 10:16 | ECHO REPORT ---
ORDER DATE: 04/28/2019 INDICATIONS: Coronary disease, angina. FINDINGS: 1. The right atrium appears normal in size at 3.1 cm. 2. Trace tricuspid regurgitation. RV systolic pressure of 20. 3. Normal RV size and systolic function. 4. Kbpt-in-nwnwxfzq pulmonic insufficiency. 5. Normal left atrial size with a volume index of 27. 6. No mitral prolapse. Trace mitral regurgitation. No mitral stenosis. 7. Somewhat dilated left ventricle with an end-diastolic dimension of 5.9 cm. Moderate left ventricular hypertrophy with a posterior and interventricular septal wall thickness of 1.5 cm each. Normal LV systolic function. Estimated EF is 60%. No obvious wall motion abnormalities. Optison was used. 8. The aortic valve opens well. It is trileaflet. No evidence of stenosis or insufficiency. 9. The aorta appears normal on visualized segments. 10. No pericardial effusion seen. cc: MD Jennifer Bender MD
--- NOTE | 2019-04-29 13:11 | DISCHARGE SUMMARY ---
ADMISSION DATE: 04/28/2019 DISCHARGE DATE: 04/29/2019 DISCHARGE DIAGNOSES: 1. Unstable angina. 2. Essential hypertension. 3. History of tobacco abuse in the past. 4. Type 2 insulin-dependent diabetes mellitus, poorly controlled. 5. Mixed hyperlipidemia. 6. BPH. 7. Gastroesophageal reflux disease. 8. Erectile dysfunction. DISCHARGE INSTRUCTIONS: 1. The patient will be transferred via ambulance to [facility] in order to undergo an elective cardiac catheterization. 2. Activity as tolerated. 3. 1800 calorie ADA diet. 4. Medicines: Flomax 0.4 mg daily, irbesartan 150 mg 2 tablets daily, glimepiride 4 mg 2 pills daily, Lasix 40 mg daily, Zetia 10 mg daily, metformin 1000 mg b.i.d., metoprolol XR 100 mg b.i.d., hydralazine 50 mg b.i.d., Ranexa 500 mg b.i.d., pantoprazole 40 mg daily, aspirin 81 mg daily, Levemir 50 units subcutaneously daily, Trulicity weekly injections. DISCHARGE PHYSICAL EXAMINATION: This is a well-developed, well-nourished, 68-year-old gentleman in no apparent distress. He is afebrile. Vital signs are stable. CV: Regular rate and rhythm. Lungs: Clear. Abdomen: Soft, nontender with active bowel sounds. Mr. Shalom Eaton was admitted to [facility] as an outpatient with observation services for further evaluation and management of chest pain. He was having classic symptoms of unstable angina. He was admitted to the PVC unit. He was placed on a telemetry bed. He ruled out for myocardial ischemia by serial enzymes. He was initially treated with aspirin, topical nitrates, and beta blockade. He already takes Ranexa. A previous Lexiscan demonstrated no reversible ischemia. Because of the persistent chest pain with a negative workup and multiple risk factors for heart disease, we felt that in all likelihood that he had unstable angina and would need to undergo an elective arteriogram. Arrangements were made to transfer him to [place] for the elective arteriogram. He has a history of type 2 insulin-dependent diabetes mellitus. Blood sugars have been fluctuating. He has polyuria and polydipsia. A random blood sugar of 261 with an insulin level of 26 were noted. I have reviewed an 1800 calorie ADA diet with him. We will continue the Levemir, Amaryl, and I will add Trulicity. Recent literature suggests the use of medicines like Trulicity in combination with insulin help to improve postprandial sugars and also stimulate weight loss. He has a history of mixed hyperlipidemia. He has been intolerant of statins. He is currently taking Zetia. Triglycerides were elevated at 660. I added Lopid 600 mg b.i.d. Having reached maximum hospital benefit, the patient was discharged in stable condition. cc: Jennifer Duong MD
== END 2019-04-29 07:45 | disposition short-term general hospital (02) ==
LOC: DIRADM → 2N 12:19
PROVIDERS: ADMIT Internal Medicine; ATTEND Internal Medicine